=== PATIENT | male | born 1985 | race Caucasian/White ===

== ENCOUNTER 2018-01-03 15:03 | Outpatient (CLI) | payer OTHER ==
--- NOTE | 2018-01-03 17:54 | ULT ---
VENOUS DUPLEX SONOGRAM RIGHT UPPER EXTREMITY: Date: 01/03/18 HISTORY: Deep venous thrombosis with therapy. FINDINGS: Prior exams not available for direct comparison. The right internal jugular and subclavian veins were evaluated, along with the axillary, brachial, ce phalic, and basilic. There is good color and spectral Doppler flow. Adjacent to the right internal jugular vein, an oval hypoechoic lesion with well-defined margins and a hyperechoic hilum measures up to 2.4 cm length x 0.8 cm diameter. IMPRESSION: 1. No sonographic evidence of deep venous thrombosis right upper extremity or internal jugular vein. 2. Enlarged, reactive appearing right jugular lymph node. POS: [facility]
== END 2018-01-03 15:04 | disposition home or self-care (01) ==
LOC: ULT 15:03
DX: I82.621 Acute embolism and thrombosis of deep veins of right upper extremity (principal); R59.0 Localized enlarged lymph nodes

== ENCOUNTER 2020-04-10 11:49 | Outpatient (CLI) | payer OTHER ==
--- NOTE | 2020-04-10 13:40 | MRI ---
MRI Upper Ext Jt Rt WO Con History: Injury of right shoulder. S 49.91XD Comparison: Shoulder radiographs March 20, 2020 Findings: Biceps tendon: Intact Labrum: Inferior labral tear at 6:00 with chondral labral junction tearing and partial stripping of t he glenoid periosteum. Small adjacent ganglion pseudocyst. Cartilage: Moderate chondral fissuring as described at the chondral labral junction tear. Rotator cuff: Low-grade tendinosis of the supraspinatus tendon. No significant bursal or articular liu rface tearing. Muscles: Muscle signal and bulk is normal. Bones: Distal clavicle is elevated and partially resorbed from old injury. Impression: 1. Chondrolabral junction tear at 6:00 with partial stripping of the glenoid periosteum. Mild adjacen t chondral fissuring. 2. No acute fracture or malalignment. 3. Partial resorption distal clavicle which appears be elevated from prior injury.
== END 2020-04-10 11:50 | disposition home or self-care (01) ==
LOC: BICMRI 11:49
PROVIDERS: ATTEND Nurse Practitioner Family
DX: S49.91XD Unspecified injury of right shoulder and upper arm, subsequent encounter (principal); S43.401A Unspecified sprain of right shoulder joint, initial encounter

== ENCOUNTER 2020-05-28 07:36 | Outpatient (CLI) | payer OTHER ==
[2020-05-28] MEDS ORDERED: Lidocaine 1% PF 10 ML AMP ONE (08:00)
[2020-05-28] MEDS ORDERED: Gadobenate Dimeglumine 529 MG/1 ML (20ML VIAL) ONE (08:00)
[2020-05-28] MEDS ORDERED: EPINEPHrine 1 MG/ML AMP ONE (08:00)
[2020-05-28] MEDS ORDERED: Iopamidol 300 61% 50 ML VIAL FS ONE (08:00)
--- NOTE | 2020-05-28 09:21 | RAD ---
Arthrogram right shoulder HISTORY: Internal derangement. Labral tear. FINDINGS: After explaining the procedure and answering all questions, the anterior aspect of the [facility] t shoulder was prepped and draped in usual sterile fashion. Sterile technique, buffered local anesthesia, fluoroscopic guidance, and an anterior approach were us ed to carefully advance the tip of a 22-gauge spinal needle to the joint capsule at the level of the glenohumeral joint. Approximately 8 cc of a liquid mixture containing normal saline, 1% lidocaine , iodinated contrast, and small amounts of gadolinium and epinephrine were then instilled into the joint capsule under fluoroscopic control. Needle was removed and spot images obtained. Contrast remai vasquez within the joint capsule. Patient tolerated the procedure well and was transferred to MRI in good condition for further imaging. IMPRESSION : Technically successful right shoulder arthrogram. No evidence of full-thickness rotator cuff tear. MR I is pending.
--- NOTE | 2020-05-28 10:23 | MRI ---
MRI Upper Ext Jt Rt W Con History: Tear of the right glenoid labrum initial encounter Comparison: Right shoulder MRI April 10, 2020 Findings: Biceps tendon: The extra-articular and intra-articular biceps tendon is intact. Labrum: Superior labrum is intact. At the peripheral aspect of the labrum at 6:00 is a thin fluid-phillip led cleft at the expected insertion point of the axillary pouch although this does not contain instilled intra-articular contrast. Cartilage: Mild lateral fraying at 6:00 near the labral tear. Bones: Elevated distal clavicle. Normal glenoid version. No acute fracture. Rotator cuff: Low-grade tendinosis supraspinatus tendon. Soft tissues: Small subacromial/subdeltoid bursa effusion. Impression: 1. Small cleft at 6:00 axillary pouch insertion upon the glenoid labrum suggesting healing tear/parti al stripping which is closed as no intra-articular contrast is seen within the defect. Tear appears to involve the axillary pouch/labral complex. 2. Old acromioclavicular separation. 3. Intact rotator cuff. 4. Mild chondral fraying 6:00 near the chondrolabral tear.
== END 2020-05-28 07:37 | disposition home or self-care (01) ==
LOC: RAD 07:36
PROVIDERS: ATTEND Orthopaedic Surgery
DX: S43.431A Superior glenoid labrum lesion of right shoulder, initial encounter (principal)
CPT/HCPCS: 23350; A9577; J0171; J2001; Q9967

== ENCOUNTER 2020-11-15 07:19 | Day surgery (SDC) | payer OTHER ==
[2020-11-13 14:54] VITALS: BMI 26.3
[2020-11-15] MEDS ORDERED: Clindamycin/D5W 600 mg/50 ml Premix Bag ONE (07:52)
[2020-11-15] MEDS ORDERED: Fentanyl 100 MCG/2 ML VIAL ONE ×2 (08:41→10:02)
[2020-11-15] MEDS ORDERED: Midazolam HCl 2 mg/2 ml Vial ONE (08:41)
[2020-11-15] MEDS ORDERED: Fentanyl 100 MCG/2 ML VIAL IV PRN (09:29)
[2020-11-15] MEDS ORDERED: traMADol HCl 50 MG TAB PO PRN ×2 (09:30)
[2020-11-15] MEDS ORDERED: HYDROcodone/Acetaminophen 10/325 mg Tablet PO PRN ×2 (09:30)
[2020-11-15] MEDS ORDERED: Ondansetron PF 4 MG/2 ML Vial IVP PRN (09:30)
[2020-11-15] MEDS ORDERED: Zolpidem Tartrate 5 MG TAB PO PRN (09:30)
[2020-11-15] MEDS ORDERED: Promethazine HCl 25 MG/ML VIAL IM PRN (09:30)
[2020-11-15] MEDS ORDERED: Ropivacaine 0.2% 550 ML 550 ML NERVE BLCK SCH (09:30)
[2020-11-15] MEDS ORDERED: Rocuronium Bromide 10 MG/ML (10ML VIAL) ONE (10:23)
[2020-11-15] MEDS ORDERED: Ketorolac Tromethamine 30 MG/ML VIAL ONE (10:23)
[2020-11-15] MEDS ORDERED: PHENYLEPHRINE-NS 100 MCG/ML 10 ML SYRINGE ONE (10:23)
[2020-11-15] MEDS ORDERED: Ropivacaine 2% HCl/PF (20 MG/10 ML VIAL) ONE (10:23)
[2020-11-15] MEDS ORDERED: PROPOFOL 200 MG/20 ML VIAL ONE (10:23)
[2020-11-15] MEDS ORDERED: Glycopyrrolate 0.2 MG/ML 5 ML SYRINGE ONE (10:23)
[2020-11-15] MEDS ORDERED: Dexamethasone 20 MG/5 ML VIAL ONE (10:23)
[2020-11-15] MEDS ORDERED: Ropivacaine 0.5% HCl/PF (150 MG/30 ML VIAL) ONE (10:23)
[2020-11-15] MEDS ORDERED: Ondansetron PF 4 MG/2 ML Vial ONE (10:23)
[2020-11-15] MEDS ORDERED: EPINEPHrine 1 MG/ML AMP ONE (10:30)
[2020-11-15] MEDS ORDERED: Bupivacaine 0.25% HCL 30 ML VIAL ONE (10:30)
[2020-11-15] MEDS ORDERED: Meperidine HCl/PF 25 MG/ML VIAL ONE (11:53)
[2020-11-15] MEDS ORDERED: HYDROmorphone 0.5 MG/0.5 ML SYRINGE ONE (11:57)
[2020-11-15] MEDS ORDERED: Ketorolac Tromethamine 30 MG/ML VIAL IVP SCH (12:00)
== END 2020-11-15 13:20 | disposition home or self-care (01) ==
LOC: SDC 07:19
PROVIDERS: ATTEND Orthopaedic Surgery
PROC: 0RBJ4ZZ Excision of Right Shoulder Joint, Percutaneous Endoscopic Approach (ICD-10-PCS; principal; 2020-11-15)
PROC: 3E0T3BZ Introduction of Anesthetic Agent into Peripheral Nerves and Plexi, Percutaneous Approach (ICD-10-PCS; principal; 2020-11-15)
PROC: 0LS30ZZ Reposition Right Upper Arm Tendon, Open Approach (ICD-10-PCS; principal; 2020-11-15)
DX: M25.311 Other instability, right shoulder (principal); S43.431A Superior glenoid labrum lesion of right shoulder, initial encounter; G89.18 Other acute postprocedural pain; F17.210 Nicotine dependence, cigarettes, uncomplicated; Z88.0 Allergy status to penicillin; Z88.8 Allergy status to other drugs, medicaments and biological substances; V89.9XXA Person injured in unspecified vehicle accident, initial encounter
CPT/HCPCS: A4306; J0171; J1170; J2175; J2250; J2795; J3010; J3490; S0020

== ENCOUNTER → 2020-11-16 | Day surgery (SDC) | payer OTHER ==
[~2020-11-16] MED LIST: Ropivacaine 2% HCl/PF (20 MG/10 ML VIAL) ONE
== END ==
LOC: SDC/OP 15:18
PROVIDERS: ATTEND Anesthesiology
PROC: 3E0T3BZ Introduction of Anesthetic Agent into Peripheral Nerves and Plexi, Percutaneous Approach (ICD-10-PCS; principal; 2020-11-16)
DX: G89.18 Other acute postprocedural pain (principal); M25.511 Pain in right shoulder; Z88.0 Allergy status to penicillin; Z88.8 Allergy status to other drugs, medicaments and biological substances
CPT/HCPCS: J2795